=== PATIENT | male | born 1950 | race Caucasian/White ===

== ENCOUNTER → 2021-01-19 | Outpatient (CLI) | payer MEDICARE ==
--- NOTE | 2021-01-19 15:15 | EST ---
EXERCISE STRESS DATE OF STUDY: 01/19/2021 AGE: 70 SEX: M HT: 5'10" WT: 190 lbs. PROTOCOL: Shahram STAGE: 3 DURATION OF EXERCISE: 7:30 HEART RATE REST: 71 BLOOD PRESSURE REST: 157/91 MAXIMUM HEART RATE ACHIEVED: 137 MAXIMUM BLOOD PRESSURE: 207/92 85% MPHR: 128 100% MPHR: 151 METS: 9.1 INDICATIONS: Chest pain. CLINICAL INFORMATION: STRESS DATA: Heart rate 71, pressure 157/91 mmHg. Baseline EKG showed sinus mechanism. The patient exercised on the treadmill according to Shahram protocol for a total of 7 minutes and 30 seconds and achieved 9.1 METS. Max heart rate was 137, which is about 91% of maximum predicted heart rate, and maximum blood pressure was 207/92 mmHg. Clinically the patient did not have any symptoms. The EKG did not show any significant ST or T-wave abnormalities concerning for ischemia. CONCLUSION: 1. Excellent exercise tolerance. 2. Normal EKG in response to exercise. 3. Essentially normal stress test for the patient. MMODL / IJN: [id number] /
== END | disposition home or self-care (01) ==
LOC: RADNMMAIN 08:18
PROVIDERS: ATTEND Family Medicine
DX: R07.9 Chest pain, unspecified (principal)
CPT/HCPCS: 93017

== ENCOUNTER → 2023-09-18 | Outpatient (CLI) | payer MEDICARE ==
--- NOTE | 2023-09-18 14:16 | XR ---
EXAMINATION TYPE: XR chest 2V, XR ribs LT DATE OF EXAM: 09/18/2023 COMPARISON: NONE HISTORY: Shortness of breath TECHNIQUE: Frontal and lateral views of the chest are obtained. FINDINGS: Scattered senescent parenchymal changes noted. Hyperinflation compatible with COPD. No evidence for infiltrate. No evidence for atelectasis. Heart size is stable. Mediastinal structures are stable and grossly unremarkable. No evidence for hilar prominence. Degenerative changes dorsal spine. IMPRESSION: 1. No evidence for acute pulmonary disease. EXAMINATION TYPE: XR chest 2V, XR ribs LT DATE OF EXAM: 09/18/2023 CLINICAL HISTORY: Pain, Fall Four views of the ribs fail demonstrate evidence for displaced rib fracture or secondary sign of rib fracture. Visualized lungs are clear. No evidence for pneumothorax. IMPRESSION: No displaced rib fractures seen. ICD 10 NO FRACTURE, INITIAL EVALUATION
== END | disposition home or self-care (01) ==
LOC: RADXRMAIN 13:21
PROVIDERS: ATTEND Family Medicine
DX: R52 Pain, unspecified (principal)
CPT/HCPCS: 71046

== ENCOUNTER → 2024-10-31 | Outpatient (CLI) | payer MEDICARE ==
--- NOTE | 2024-11-02 14:53 | MR ---
EXAMINATION TYPE: MR knee RT wo con DATE OF EXAM: 10/31/2024 12:23 PM COMPARISON: No radiographic correlation available CLINICAL INDICATION: Male, 74 years old with history of M25.861 mass R knee, Palpable lump above righ t patella. TECHNIQUE: Multiplanar, multisequence imaging of the right knee is performed without IV contrast. FINDINGS: The ACL and PCL are intact. MCL and LCL complex are also intact. There is a complex degenerative tear involving the undersurface of the posterior horn of the medial m eniscus. Tear extends to the junction with the meniscal body. Moderate to severe focal cartilage loss along the mid weightbearing aspect of the medial femoral cond yle measuring 6 mm wide and 8 mm AP. Some additional scattered mild irregular cartilage loss througho ut the medial compartment. The lateral meniscus is intact. Overall lateral compartment articular cartilage volume is maintained. Moderate irregular cartilage loss throughout the patellofemoral compartment with more severe to full- thickness cartilage loss along the peripheral aspect of the medial facet of the patella. Extensor mechanism is intact. Mild anterior soft tissue swelling. Small knee joint effusion. No sizab le Díaz's cyst. There is an oval, circumscribed mass matching that of fat signal intensity along the anterior aspect of the lower thigh located 3.3 cm as above the patella. This overlies the quadriceps superficial fasc ia centered within the subcutaneous adipose layer. It measures 3.5 cm craniocaudal by 1.5 cm thick by 4.6 cm wide. Strandy internal edema and fine septations but without discrete soft tissue nodularity. Minimal surrounding edema is also present. Normal popliteal artery anatomy and muscle bulk. No suspicious bone marrow replacement. IMPRESSION: 1. 4.6 x 3.5 x 1.5 cm circumscribed oval mass overlying the quadriceps superficial fascia anterior lo wer thigh. This shows fat signal intensity but also with internal strandy edema and fine septations. 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 Recommend referral to orthopedic oncology for further surveillance/management. 2. Moderate overall patellofemoral compartmental away with a more severe cartilage loss along the med ial patellar facet. 3. Degenerative tear posterior horn of the medial meniscus. 6 x 8 mm focal high-grade cartilage loss along the mid weightbearing aspect of the medial femoral condyle. [facility], , 11/02/2024 2:51 PM
== END | disposition home or self-care (01) ==
LOC: RADMRIMAIN 11:18
PROVIDERS: ATTEND Family Medicine
DX: S83.241A Other tear of medial meniscus, current injury, right knee, initial encounter (principal); M25.861 Other specified joint disorders, right knee; M17.11 Unilateral primary osteoarthritis, right knee; C49.9 Malignant neoplasm of connective and soft tissue, unspecified; R60.0 Localized edema; X58.XXXA Exposure to other specified factors, initial encounter